=== PATIENT | male | born 1960 | race African-American/Black ===

== ENCOUNTER 2020-05-16 22:57 | Emergency (ER) | payer MEDICAID ==
[~2020-05-16] VITALS: Ht 182.9 cm; Wt 82.0 kg
[2020-05-16] MEDS ORDERED: ASPIRIN 81MG TABLET PO ONE (23:15)
[2020-05-16] MEDS ORDERED: NITROGLYCERIN 0.4MG TABLET SL SL PRN (23:15)
[2020-05-16 23:30] LABS: BASOPHILS % 1.1 % (0.0-2.0); HEMATOCRIT. 37.6 % (42.0-52.0); HEMOGLOBIN. 12.4 g/dL (14.0-18.0); LYMPHOCYTES % 38.8 % (20.0-50.0); MEAN CORPUSCULAR HEMOGLOBIN 30.3 pg (28.0-32.0); MEAN CORPUSCULAR VOLUME 91.6 fL (80.0-94.0); MEAN PLATELET VOLUME 8.7 fl (7.4-10.4); NEUTROPHILS % 48.1 % (40.0-76.0); PLATELET 119 x1000/uL (130-400); RED CELL DISTRIBUTION WIDTH 15.9 % (11.6-14.6)
[2020-05-16] MEDS ORDERED: SODIUM CHLORIDE 0.9% 1,000 ML IV ONE ×2 (23:30)
[2020-05-16 23:34] LABS: CHLORIDE 111 mEq/L (98-107)
[2020-05-16 23:38] LABS: ETHANOL BLOOD < 10 mg/dL
[2020-05-17] MEDS ORDERED: LORAZEPAM 2MG/ML CPJ IV ONE ×2 (02:30→03:00)
[2020-05-17] MEDS ORDERED: IOHEXOL-350 100 ML BOTTLE ONE (02:47)
[2020-05-17 04:00] VITALS: BP 135/86
== END 2020-05-17 04:22 | disposition short-term general hospital (02) ==
LOC: ER 22:57 → CANBEDREQ 05-17 00:24 → ER 05-17 04:22
DX: I71.00 Dissection of unspecified site of aorta (principal); I10 Essential (primary) hypertension; R07.89 Other chest pain; R06.02 Shortness of breath
CPT/HCPCS: 36415; 71045; 71275; 74174; 74176; 80053; 80320; 83690; 83880; 84484; 85025; 93005; 96361; 96374; 99285; J2060; J7030; Q9967; Z7610; G0480